=== PATIENT | female | born 1940 | race Caucasian/White ===

== ENCOUNTER → 2024-02-10 09:08 | Outpatient (REF) | payer MEDICARE, OTHER, SELFPAY | LOC: RCS 09:08 | PROVIDERS: ATTENDING PHYSICIAN Family Medicine | DX: R01.1 Cardiac murmur, unspecified (principal) | CPT/HCPCS: 93306 ==

== ENCOUNTER → 2024-02-12 15:10 | Outpatient (REF) | payer MEDICARE, OTHER, SELFPAY | LOC: PAVMRI 15:10 | PROVIDERS: ATTENDING PHYSICIAN Family Medicine | DX: R41.3 Other amnesia (principal) | CPT/HCPCS: 70551 ==

== ENCOUNTER → 2024-05-23 11:10 | Outpatient (REF) | payer MEDICARE, OTHER, SELFPAY | LOC: RAD 11:10 | PROVIDERS: ATTENDING PHYSICIAN Family Medicine | DX: M25.561 Pain in right knee (principal) | CPT/HCPCS: 73564 ==

== ENCOUNTER → 2024-05-23 13:49 | Outpatient (REF) | payer MEDICARE, OTHER, SELFPAY | LOC: RAD 13:49 | PROVIDERS: ATTENDING PHYSICIAN Family Medicine | DX: Z78.0 Asymptomatic menopausal state (principal) | CPT/HCPCS: 77080 ==

== ENCOUNTER → 2024-05-28 08:18 | Outpatient (REF) | payer MEDICARE, OTHER, SELFPAY ==
[2024-05-28 10:29] LABS: % Basophils 0.8 % (0-2); % Eosinophils 1.5 % (0-6); % Immature Granulocytes 0.5 % (0-0.5); % Monocytes 8.1 % (1.7-9.3); % Neutrophils 65.1 % (42.2-75.2); Absolute Basophils 0.1 10^3/uL (0-0.2); Absolute Eosinophils 0.1 10^3/uL (0-0.7); Absolute Lymphocytes 1.6 10^3/uL (1.2-3.4); Absolute Monocytes 0.5 10^3/uL (0.1-0.6); Absolute Neutrophils 4.3 10^3/uL (1.4-6.5); Hematocrit 44.3 % (37.0-47.0); Hemoglobin 14.7 g/dL (12.0-16.0); Mean Corp Hgb Conc. 33.2 g/dL (33.0-37.0); Mean Corpuscular Hgb 30.8 pg (27.0-31.0); Mean Corpuscular Volume 92.7 fL (81.0-99.0); Mean Platelet Volume 9.9 fL (7.4-10.4); Nucleated Red Blood Cells % 0 %; Platelet Count 327 10^3/uL (130-400); Red Blood Cell Count 4.78 10^6/uL (4.20-5.40); Red Cell Dist. Width 12.7 % (11.5-14.5); White Blood Cell Count 6.5 10^3/uL (4.8-10.8)
[2024-05-28 11:01] LABS: ALT (SGPT) 23 U/L (0-35); AST (SGOT) 26 U/L (14-36); Albumin 4.7 g/dl (3.5-5.0); Alkaline Phosphatase 61 U/L (38-126); Blood Urea Nitrogen 21 mg/dl (7-17); Calcium 9.6 mg/dl (8.4-10.2); Carbon Dioxide 29 mmol/L (22-30); Chloride 101 mmol/L (98-107); Glucose 93 mg/dl (70-99); HDL Cholesterol 83 mg/dl; LDL Cholesterol, Calculated 93 mg/dl; Potassium 4.7 mmol/L (3.5-5.1); Sodium 142 mmol/L (135-145); Total Bilirubin 0.8 mg/dl (0.2-1.3); Total Cholesterol 196 mg/dl (50-199); Total Protein 7.1 g/dl (6.3-8.2); Triglyceride 100 mg/dl (10-149); Very Low Density Lipoprotein 20 mg/dl (0-30); eGFR > 60.00
[2024-05-28 11:31] LABS: TSH 0.44 uIU/ml (0.47-4.68)
[2024-05-28 11:52] LABS: Glycohemoglobin (HgbA1c) 5.6 % (4.0-5.6)
[2024-05-28 11:56] LABS: Hepatitis C Antibody Negative (Negative)
== END ==
LOC: REG 08:18
PROVIDERS: ATTENDING PHYSICIAN Family Medicine
DX: M25.561 Pain in right knee (principal); Z01.89 Encounter for other specified special examinations; Z00.00 Encounter for general adult medical examination without abnormal findings
CPT/HCPCS: 36415; 80053; 80061; 83036; 84443; 85025; 86803

== ENCOUNTER → 2024-06-17 14:40 | Outpatient (REF) | payer MEDICARE, OTHER, SELFPAY | LOC: WDC 14:40 | PROVIDERS: ATTENDING PHYSICIAN Family Medicine | DX: Z12.31 Encounter for screening mammogram for malignant neoplasm of breast (principal) | CPT/HCPCS: 77063; 77067 ==

== ENCOUNTER → 2024-06-21 08:41 | Outpatient (REF) | payer MEDICARE, OTHER, SELFPAY | LOC: WDC 08:41 | PROVIDERS: ATTENDING PHYSICIAN Family Medicine | DX: R92.8 Other abnormal and inconclusive findings on diagnostic imaging of breast (principal) | CPT/HCPCS: 76642 ==

== ENCOUNTER 2025-07-01 11:53 | Emergency (ER) | payer MEDICARE, OTHER, SELFPAY ==
[2025-07-01 11:54] VITALS: BP 142/76
[2025-07-01 12:31] LABS: Hematocrit 41.8 % (37.0-47.0); Hemoglobin 13.8 g/dL (12.0-16.0); Mean Corp Hgb Conc. 33.0 g/dL (33.0-37.0); Mean Corpuscular Volume 94.4 fL (81.0-99.0); Nucleated Red Blood Cells % 0 %; Platelet Count 282 10^3/uL (130-400); Red Cell Dist. Width 12.7 % (11.5-14.5)
[2025-07-01 12:42] LABS: INR 0.96; PT 13.1 Sec (11.4-14.6)
[2025-07-01 12:48] LABS: ALT (SGPT) 14 U/L (0-35); AST (SGOT) 19 U/L (14-36); Albumin 4.2 g/dl (3.5-5.0); Alkaline Phosphatase 65 U/L (38-126); Blood Urea Nitrogen 15 mg/dl (7-17); Calcium 9.0 mg/dl (8.4-10.2); Carbon Dioxide 30 mmol/L (22-30); Chloride 102 mmol/L (98-107); Glucose 117 mg/dl (70-99); Potassium 4.4 mmol/L (3.5-5.1); Sodium 136 mmol/L (135-145); Total Protein 6.6 g/dl (6.3-8.2); eGFR > 60.00
[2025-07-01 12:51] LABS: Troponin I < 0.012 ng/ml
[2025-07-01 13:24] VITALS: BP 106/91
--- NOTE | 2025-07-01 13:38 | ED.GENMED ---
History of Present Illness
General
Chief Complaint: Chest Pain
Source: patient and spouse
Exam Limitations: none
Time Seen by Provider: 07/01/25 13:19
Nursing documentation reviewed up to this point in time: agreed with
History of Present Illness
History of Present Illness:
Note:
CHIEF COMPLAINT(S)
Chest pain
HISTORY OF PRESENT ILLNESS
The patient is an 84-year-old female who presented with chest pain. The pain started when she was waiting for a family member to come home. The chest pain was described as occurring in the chest and slightly in the throat, lasting approximately 15
minutes. The patient noted an episode of dizziness before the onset of the chest pain, leading her to sit down, at which point the pain began. This is not the first occurrence of such chest pain, which prompted her to seek medical evaluation. The
patient expressed concerns about potential cardiac issues, as indicated by her inquiry regarding a heart attack. Initial evaluation, including an electrocardiogram (EKG) and first troponin test, showed normal results.
SOCIAL HISTORY
The patient denies smoking. She reports consuming alcohol, approximately two glasses per week. No recreational drug use or prescription misuse was reported.
MEDICATIONS
- Medication for cholesterol (unspecified)
- Aspirin, baby dose
- OccuVite for eye health
PAST SURGICAL HISTORY
- Procedure following a miscarriage
PHYSICAL EXAM
General: Alert, no acute distress.
Skin: Warm, dry.
Head: Normocephalic, atraumatic.
Neck: Supple, trachea midline.
Eye, Ears, Nose, Mouth, and Throat: Oral mucosa moist.
Cardiovascular: Normal peripheral perfusion, No edema.
Respiratory: Respirations are non-labored.
Gastrointestinal: Abdomen nondistended.
Back: Normal range of motion, Normal alignment.
Musculoskeletal: Normal range of motion, normal strength.
Neurological: Alert and oriented to person, place, time, and situation, No focal neurological deficit observed.
Psychiatric: Cooperative, appropriate mood & affect.
PLAN
- Administer a regular dose of aspirin.
- Repeat the troponin blood test two hours after initial testing to check for delayed elevation that might indicate cardiac stress or damage.
- Monitor for two additional hours with potential for discharge if results remain normal.
DIFFERENTIAL DIAGNOSIS
The Differential Diagnosis includes, in no particular order and is not limited to:
- Non-cardiac chest pain
- Gastroesophageal reflux disease (GERD)
- Musculoskeletal pain
- Angina pectoris
- Myocardial infarction
- Anxiety or panic disorder
- Pulmonary embolism
- Aortic dissection
- Pericarditis
- Costochondritis
EKG
My independent EKG interpretation is:
- Rhythm: Normal
- ST elevation: None observed
- Signs of ischemia: None observed
- DC interval: Normal
- QRS duration: Normal
- QT interval: Normal
- [place]: Normal
Disposition:
SUMMARY OF ENCOUNTER
The patient, an 84-year-old female, presented to the emergency department with chest pain. The chest pain was initially accompanied by dizziness. After an initial assessment, including an EKG and serial troponin tests, both results returned normal
values, which ruled out acute coronary syndrome (ACS) and pulmonary embolism (PE). The patient expressed concerns over potential cardiac issues, but her condition improved, and she was pain-free while in the emergency department.
DISPOSITION
Discharge.
ASSESSMENT
The primary assessment includes chest pain with no evidence of ACS or PE. The patients condition was stable and improved during her stay in the emergency department.
PLAN
The plan includes discharge with instructions for the patient to follow up with a educational diagnostician, given her history of hyperlipidemia and her age. Specific term precautions were provided for the patient.
INDEPENDENT REVIEW OF LABS AND INTERPRETATION OF TESTS
- My independent review of the EKG is normal rhythm with no ST elevation or signs of ischemia.
- My independent review of the troponin tests indicates normal levels with no evidence of cardiac stress or damage.
PATIENT EDUCATION AND COUNSELING
The patient was educated on recognizing and managing chest pain and was given term precautions. Follow-up with cardiology was advised due to age and lipid history.
FOLLOW-UP INSTRUCTIONS
The patient is advised to follow up with cardiology.
MEDICATION RECONCILIATION
Continue current medications, including aspirin. No new medications prescribed upon discharge.
MEDICAL DECISION MAKING
- Number and Complexity of Problems Addressed: Chronic conditions affecting care include hyperlipidemia. Differential Diagnosis includes non-cardiac chest pain, angina pectoris, anxiety, musculoskeletal pain, and gastroesophageal reflux disease.
- Data:
- Category 1: My independent interpretation of the EKG and serial troponin tests.
- Category 2: None.
- Category 3: None.
- Risk: Consideration of Admission/Observation: Escalation of care, including admission/observation, was considered due to the complexity and risk of the presenting complaint, but the patient was safely discharged with arrangements for close
follow-up. The patient was agreeable with the discharge plan and reliable for follow-up.
DIAGNOSIS
- Chest pain, unspecified (ICD-10: R07.9).
Phy Exam
Physical Exam
Physical Exam:
.
Scores
Heart Score for Chest Pain Patients
STEMI patient?: No
History: Slightly or Non-Suspicious
ECG: Normal
Age: >/= 65 years
Risk Factors: 1 or 2 Risk Factors
Troponin: </= Normal Limit
Heart Score for Chest Pain Patients: 3
Heart Score Risk: 2.5% MACE over next 6 weeks
Course
Orders/Labs/Results
Orders:
Orders
07/01/25 11:54
EKG [Electrocardiogram (*1)] Urgent
Reason for Study: Chest Pain
EKG- Treatment ONCE
CR Chest - 2 Views Urgent
Comment:
Reason For Exam: chest pain
07/01/25 12:06
Complete Blood Count/With Diff Urgent
Comprehensive Metabolic Panel Urgent
Prothrombin Time Urgent
Troponin I Urgent
07/01/25 14:34
Aspirin Chewable [Low Strength Aspirin] 324 mg PO NOW STA
07/01/25 15:12
Troponin I Urgent
Abnormal Lab Results
07/01/25
12:06
MCH 31.2 H pg
(27.0-31.0)
Absolute Monos (auto) 0.9 H 10^3/uL
(0.1-0.6)
Lymphocytes % 20.2 L %
(20.5-51.1)
Monocytes % 10.5 H %
(1.7-9.3)
Glucose 117 H mg/dl
(70-99)
07/01/25 12:06
07/01/25 12:06
Vital Signs
Initial and Last Documented VS:
Initial Vital Signs
Temp Pulse Resp BP Pulse Ox
98 F 75 16 142/76 97
07/01/25 11:54 07/01/25 11:54 07/01/25 11:54 07/01/25 11:54 07/01/25 11:54
Last Documented Vital Signs
Temp Pulse Resp BP Pulse Ox
98 F 64 23 106/91 97
07/01/25 11:54 07/01/25 13:30 07/01/25 13:24 07/01/25 13:24 07/01/25 14:03
*Pulse Oximetry
SaO2: 97
Oxygen Mode of Delivery: Room air
Patient hypoxic: no
*Critical Care Note
Total Time (30-74mins, 75-104mins- exclusive of procedures): Not Applicable
ED Attending Note
-
Portions of this chart may have been created with voice recognition software.� Occasional wrong word or��sound alike� substitutions may have occurred due to the inherent limitations of voice recognition software.
Discharge Plan
Departure
Patient Disposition: Home (Routine Discharge)
Date of Disposition: 07/01/25
Time of Disposition: 16:21
Patient with high blood pressure during this ER visit?: Yes
Condition: Good
Discharge Problem:
Chest pain
Instructions: Chest Pain CBC Follow Up, BLOOD PRESSURE
Referrals:
Myrna Hernandez MD [Family Provider, Family Practice] - Call in 1-3 days for appt
Interventions
Interventions:
*Risk Screen - Suicide Last Done: 07/01/25 11:57
*Neglect/Abuse Screening Last Done: 07/01/25 11:57
*Nursing Disposition Last Done: 07/01/25 16:41
ED- Cardiac Assessment Last Done: 07/01/25 12:20
Discharge Date and Time
Discharge Date/Time: 07/01/25 16:42
Print Language: YORUBA
[2025-07-01] MEDS: LOW STRENGTH ASPIRIN 324 MG PO (15:07)
[2025-07-01 15:53] LABS: Troponin I < 0.012 ng/ml
== END 2025-07-01 16:42 | disposition home or self-care (01) ==
LOC: EMR 11:53
PROVIDERS: Emergency Medicine; EMERGENCY PHYSICIAN Emergency Medicine; FAMILY PHYSICIAN Family Medicine
DX: R07.9 Chest pain, unspecified (principal); R03.0 Elevated blood-pressure reading, without diagnosis of hypertension; E78.5 Hyperlipidemia, unspecified; Z79.82 Long term (current) use of aspirin
CPT/HCPCS: 99284; 71046; 80053; 84484; 85025; 85610; 93005